=== PATIENT | female | born 1990 | race Caucasian/White ===

== ENCOUNTER 2018-01-03 12:06 | Emergency (ER) | payer MEDICAID ==
[2018-01-03 12:14] VITALS: BP 127/80
[2018-01-03] MEDS ORDERED: HYDROCODONE/ACETAMINOPHEN 5-325 MG TABLET PO ONE (13:16)
[2018-01-03] MEDS ORDERED: ONDANSETRON 4 MG TAB.RAPDIS PO ONE (13:17)
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
== END 2018-01-03 14:41 | disposition left against medical advice (07) ==
LOC: ER 12:06
DX: M54.2 Cervicalgia (principal); M54.9 Dorsalgia, unspecified; R00.0 Tachycardia, unspecified; M25.552 Pain in left hip; M25.551 Pain in right hip; F17.200 Nicotine dependence, unspecified, uncomplicated; V86.99XA Unspecified occupant of other special all-terrain or other off-road motor vehicle injured in nontraffic accident, initial encounter
CPT/HCPCS: 99281

== ENCOUNTER 2018-08-19 17:09 | Emergency (ER) | payer SELFPAY ==
[2018-08-19] MEDS ORDERED: HYDROCODONE/ACETAMINOPHEN 5-325 MG TABLET PO ONE (17:45)
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
--- NOTE | 2018-08-19 18:31 | RADIOLOGY REPORT (SQ) ---
EXAM DESCRIPTION: HAND RIGHT 3 VIEWS COMPLETED DATE/TIME: 08/19/2018 6:21 pm REASON FOR STUDY: crush injury of fingers 2 through 5 COMPARISON: None. EXAM PARAMETERS: NUMBER OF VIEWS: Three views. TECHNIQUE: AP, lateral and oblique radiographic images acquired of the right hand. LIMITATIONS: None. FINDINGS: MINERALIZATION: Normal. BONES: No acute fracture or dislocation. No worrisome bone lesions. JOINTS: No effusions. SOFT TISSUES: No soft tissue swelling. No foreign body. OTHER: No other significant finding. IMPRESSION: NEGATIVE STUDY OF THE RIGHT HAND. NO RADIOGRAPHIC EVIDENCE OF ACUTE INJURY. TECHNICAL DOCUMENTATION: JOB ID: [id number] [employer]- All Rights Reserved Reading location - IP/workstation name: [email or web address]
[2018-08-19 18:58] VITALS: BP 115/72
== END 2018-08-19 19:00 | disposition home or self-care (01) ==
LOC: ER 17:09
DX: S67.190A Crushing injury of right index finger, initial encounter (principal); S60.021A Contusion of right index finger without damage to nail, initial encounter; S67.196A Crushing injury of right little finger, initial encounter; S67.192A Crushing injury of right middle finger, initial encounter; S67.194A Crushing injury of right ring finger, initial encounter; W23.0XXA Caught, crushed, jammed, or pinched between moving objects, initial encounter; F17.200 Nicotine dependence, unspecified, uncomplicated
CPT/HCPCS: 99283

== ENCOUNTER 2018-12-23 21:19 | Emergency (ER) | payer SELFPAY ==
--- NOTE | 2018-12-23 23:27 | RADIOLOGY REPORT (SQ) ---
EXAM DESCRIPTION: XR KNEE 3 VIEWS COMPLETED DATE/TME: 12/23/2018 22:41 CLINICAL HISTORY: 28 years, Female, pain in knee, leg swelling COMPARISON: None. NUMBER OF VIEWS: Three TECHNIQUE: Three views RIGHT knee were obtained in AP, lateral and patellar projections LIMITATIONS: None. FINDINGS: Minimal degenerative changes noted with sharpening of the tibial spines and tiny tricompartmental osteophytes. Moderate nonspecific suprapatellar joint effusion. There is no fracture or dislocation. The joint spaces are preserved. No soft tissue abnormalities are seen. IMPRESSION: Moderate nonspecific suprapatellar joint effusion. copyright 2010 [employer]- All Rights Reserved
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
[2018-12-23] MEDS ORDERED: ENOXAPARIN SODIUM INJ 60 MG/0.6 ML DISP.SYRIN SUBCUT SCH (23:45)
[2018-12-24 00:23] VITALS: BP 114/81
--- NOTE | 2018-12-24 23:42 | EKG REPORT ---
SEVERITY:- BORDERLINE ECG - SINUS RHYTHM BORDERLINE PROLONGED QT INTERVAL : Confirmed by: Kindra Hinojosa 24-Dec-2018 23:41:58
== END 2018-12-24 00:34 | disposition home or self-care (01) ==
LOC: ER 21:19
DX: T40.601A Poisoning by unspecified narcotics, accidental (unintentional), initial encounter (principal); Y92.810 Car as the place of occurrence of the external cause; T76.21XA Adult sexual abuse, suspected, initial encounter; R10.2 Pelvic and perineal pain; M25.561 Pain in right knee; M25.461 Effusion, right knee; R60.0 Localized edema; F17.200 Nicotine dependence, unspecified, uncomplicated
CPT/HCPCS: 93005; 99284; 96372; 73562; 93010; J1650

== ENCOUNTER 2018-12-24 09:12 | Emergency (ER) | payer SELFPAY ==
--- NOTE | 2018-12-24 09:33 | ER Document Report ---
ED Medical Screen (RME) - General Chief Complaint: Leg Pain Stated Complaint: LEG PAIN Time Seen by Provider: 12/24/18 09:28 Mode of Arrival: Ambulatory Information source: Patient Notes: Patient is a 28-year-old female who was seen in this emergency department last night by Dr. Velazquez for multiple complaints. Patient was told to return to the emergency department this morning for a venous Doppler ultrasound of her right leg. Dr. Voss gave her a dose of Lovenox last night as he had a high level of suspicion for a DVT. Patient does not have any known risk factors for DVT. Patient has tenderness to palpation over the right popliteal fossa. She does have 2+ dorsalis pedis pulse and anterior tibial pulse. I have greeted and performed a rapid initial assessment of this patient. A comprehensive ED assessment and evaluation of the patient, analysis of test results and completion of the medical decision making process will be conducted by additional ED providers. Dictation of this chart was performed using voice recognition software; therefore, there may be some unintended grammatical errors. TRAVEL OUTSIDE OF THE [place] IN LAST 30 DAYS: No - Related Data Allergies/Adverse Reactions: No Known Allergies Allergy (Verified 12/23/18 22:41) Past Medical History - Past Medical History Cardiac Medical History: Denies: Hx Congestive Heart Failure, Hx Heart Attack, Hx Hypertension Pulmonary Medical History: Denies: Hx Asthma, Hx Bronchitis, Hx COPD, Hx Pneumonia, Hx Tuberculosis Neurological Medical History: Denies: Hx Seizures Renal/ Medical History: Denies: Hx End Stage Renal Disease, Hx Kidney Stones, Hx Peritoneal Dialysis GI Medical History: Denies: Hx Cirrhosis, Hx Gastroesophageal Reflux Disease, Hx Ulcer Musculoskeltal Medical History: Denies Hx Arthritis, Denies Hx Multiple Sclerosis Psychiatric Medical History: Denies: Hx Bipolar Disorder, Hx Depression, Hx Schizophrenia Past Surgical History: Denies: Hx Pacemaker - Immunizations Hx Diphtheria, Pertussis, Tetanus Vaccination: Yes Physical Exam - Vital signs Vitals: Temp Pulse Resp BP Pulse Ox 98.4 F 88 16 116/71 100 12/24/18 09:15 12/24/18 09:15 12/24/18 09:15 12/24/18 09:15 12/24/18 09:15 Course - Vital Signs Vital signs: Temp Pulse Resp BP Pulse Ox 98.4 F 88 16 116/71 100 12/24/18 09:15 12/24/18 09:15 12/24/18 09:15 12/24/18 09:15 12/24/18 09:15
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
[2018-12-24 12:19] VITALS: BP 105/68
--- NOTE | 2018-12-24 14:33 | XCELERA REPORT ---
[address] [place] [facility] [place] [address] Lower Extremity Venous Evaluation Procedure: Color flow and duplex imaging of the veins of the right lower extremity as well as the left Common Femoral vein. Right Sided Venous Evaluation Normal vessel filling wall to wall, compression and augmentation as well as Colour flow down to the infrageniculate veins. Left Sided Venous Evaluation The left common femoral vein is fully compressible. Spontaneous and phasic flow is present in the left common femoral vein. Interpretation Summary No duplex evidence of DVT or obstruction in the right lower extremity nor in the left Common Femoral vein. Name: PRISCILLA WEST Age: 28 yrs Gender: Female : 1990 Patient Status: Emergency Patient Location: ER Study Date: 12/24/2018 10:58 AM Reason For Study: right lower extremity pain/swelling Ordering Physician: AHMET TINEO Performed By: Samy Aly : AHMET TINEO > Rainer Poole
== END 2018-12-24 12:20 | disposition home or self-care (01) ==
LOC: ER 09:12
DX: M25.461 Effusion, right knee (principal); M25.561 Pain in right knee; F17.200 Nicotine dependence, unspecified, uncomplicated; F12.10 Cannabis abuse, uncomplicated; F11.10 Opioid abuse, uncomplicated
CPT/HCPCS: 99283; 93971 ×2; L1830

== ENCOUNTER 2019-05-18 18:31 | Emergency (ER) | payer MEDICAID ==
[2019-05-18 18:51] VITALS: BP 114/76
[2019-05-18] MEDS ORDERED: ACETAMINOPHEN 325 MG TABLET PO ONE (20:20)
--- NOTE | 2019-05-18 20:22 | ER Document Report ---
ED Medical Screen (RME) - General Chief Complaint: Abscess Stated Complaint: POSSIBLE SPIDER BITE Time Seen by Provider: 05/18/19 20:16 Mode of Arrival: Ambulatory Information source: Patient Notes: 29-year-old female presented to ED for complaint of 2 abscesses to her left thigh. She states 2 to 3 days ago they were just little small pimples and she pinched them and now they are large with a large red area surrounding the area with severe pain. She is alert oriented respirations regular and unlabored speaking in full sentences. She states she does smoke 1/2 pack a day she is a secretary to the vice president and lives with her significant other. She states she does not know if she is or not I have greeted and performed a rapid initial assessment of this patient. A comprehensive ED assessment and evaluation of the patient, analysis of test results and completion of medical decision making process will be conducted by an additional ED providers. TRAVEL OUTSIDE OF THE [place] IN LAST 30 DAYS: No - Related Data Allergies/Adverse Reactions: No Known Allergies Allergy (Verified 05/18/19 18:34) Past Medical History - Past Medical History Cardiac Medical History: Denies: Hx Congestive Heart Failure, Hx Heart Attack, Hx Hypertension Pulmonary Medical History: Denies: Hx Asthma, Hx Bronchitis, Hx COPD, Hx Pneumonia, Hx Tuberculosis Neurological Medical History: Denies: Hx Seizures Renal/ Medical History: Denies: Hx End Stage Renal Disease, Hx Kidney Stones, Hx Peritoneal Dialysis GI Medical History: Denies: Hx Cirrhosis, Hx Gastroesophageal Reflux Disease, Hx Ulcer Musculoskeltal Medical History: Denies Hx Arthritis, Denies Hx Multiple Sclerosis Psychiatric Medical History: Denies: Hx Bipolar Disorder, Hx Depression, Hx Schizophrenia Past Surgical History: Denies: Hx Pacemaker - Immunizations Hx Diphtheria, Pertussis, Tetanus Vaccination: Yes Physical Exam - Vital signs Vitals: Temp Pulse Resp BP Pulse Ox 98.4 F 94 18 114/76 99 05/18/19 18:49 05/18/19 18:49 05/18/19 18:49 05/18/19 18:49 05/18/19 18:49 Course - Vital Signs Vital signs: Temp Pulse Resp BP Pulse Ox 98.4 F 94 18 114/76 99 05/18/19 18:49 05/18/19 18:49 05/18/19 18:49 05/18/19 18:49 05/18/19 18:49
[2019-05-18 20:53] LABS: ABSOLUTE BASOPHILS # (AUTO) 0.1 10^3/uL (0.0-0.2); ABSOLUTE EOSINOPHILS # (AUTO) 0.3 10^3/uL (0.0-0.6); ABSOLUTE MONOCYTES (AUTO) 0.6 10^3/uL (0.1-1.4); ABSOLUTE NEUT (AUTO) 4.4 10^3/uL (1.7-8.2); BASOPHILS % (AUTO) 0.7 % (0-2); EOSINOPHILS % (AUTO) 3.6 % (0-6); HEMATOCRIT 38.2 % (36.0-47.0); HEMOGLOBIN 12.7 g/dL (12.0-15.5); LYMPHOCYTES % (AUTO) 35.8 % (13-45); MEAN CORPUSCULAR HEMOGLOBIN 29.4 pg (27.0-33.4); MEAN CORPUSCULAR HGB CONC 33.2 g/dL (32.0-36.0); MEAN CORPUSCULAR VOLUME 89 fl (80-97); MONOCYTES % (AUTO) 6.6 % (3-13); PLATELET COUNT 307 10^3/uL (150-450); RED BLOOD COUNT 4.31 10^6/uL (3.72-5.28); RED CELL DISTRIBUTION WIDTH 13.8 % (11.5-14.0); SEGMENTED NEUTROPHILS % (AUTO) 53.3 % (42-78); TOTAL CELLS COUNTED % (AUTO) 100 %; WHITE BLOOD COUNT 8.3 10^3/uL (4.0-10.5)
== END 2019-05-18 22:05 | disposition left against medical advice (07) ==
LOC: ER 18:31
DX: L02.416 Cutaneous abscess of left lower limb (principal)
CPT/HCPCS: 99281; 36415; 84703; 85025; J3490

== ENCOUNTER 2019-07-26 19:22 | Emergency (ER) | payer MEDICAID ==
[2019-07-26 19:48] VITALS: BP 120/76
== END 2019-07-27 02:55 | disposition left against medical advice (07) ==
LOC: ER 19:22
DX: Z53.21 Procedure and treatment not carried out due to patient leaving prior to being seen by health care provider (principal)

== ENCOUNTER 2019-07-27 03:28 | Emergency (ER) | payer SELFPAY ==
[2019-07-27] MEDS ORDERED: CLINDAMYCIN HCL 150 MG CAPSULE PO ONE (08:43)
[2019-07-27] MEDS ORDERED: LIDOCAINE 1% INJ-PF (10 MG/ML) 30 ML SDV INJ ONE (08:45)
--- NOTE | 2019-07-27 08:48 | ER Document Report ---
ED General - General Chief Complaint: Abscess Stated Complaint: POSSIBLE ABCESS IN ARM Time Seen by Provider: 07/27/19 08:23 Notes: Patient is a 30-year-old female who presents the emergency department with a chief complaint of redness and pain to her right antecubital area. Patient is an IV drug abuser. She denies any fever, body aches, chills, or any other symptoms. Patient uses meth and the last time she shot up in her right AC area was 5 days ago. TRAVEL OUTSIDE OF THE [place] IN LAST 30 DAYS: No - Related Data Allergies/Adverse Reactions: No Known Allergies Allergy (Verified 05/18/19 18:34) Past Medical History - Social History Smoking Status: Current Every Day Smoker Frequency of alcohol use: None Drug Abuse: Methamphetamine Family History: Reviewed & Not Pertinent Patient has suicidal ideation: No Patient has homicidal ideation: No - Past Medical History Cardiac Medical History: Denies: Hx Congestive Heart Failure, Hx Heart Attack, Hx Hypertension Pulmonary Medical History: Denies: Hx Asthma, Hx Bronchitis, Hx COPD, Hx Pneumonia, Hx Tuberculosis Neurological Medical History: Denies: Hx Seizures, Hx Parkinson's Disease Renal/ Medical History: Denies: Hx End Stage Renal Disease, Hx Kidney Stones, Hx Peritoneal Dialysis GI Medical History: Denies: Hx Cirrhosis, Hx Gastroesophageal Reflux Disease, Hx Ulcer Musculoskeletal Medical History: Denies Hx Arthritis, Denies Hx Multiple Scleros is Psychiatric Medical History: Denies: Hx Bipolar Disorder, Hx Depression, Hx Schizophrenia Past Surgical History: Denies: Hx Pacemaker - Immunizations Hx Diphtheria, Pertussis, Tetanus Vaccination: Yes Review of Systems - Review of Systems Notes: REVIEW OF SYSTEMS: CONSTITUTIONAL : Denies recent illness. Denies recent unintentional weight loss. Denies fever, chills, or sweats. EENT: Denies eye, ear, throat, or mouth pain, discharge, or symptoms. Denies nasal or sinus congestion. CARDIOVASCULAR: Denies chest pain. RESPIRATORY: Denies shortness of breath, cough, congestion, difficulty breathing, or wheezing. GASTROINTESTINAL: Denies nausea, vomiting, and diarrhea. Denies abdominal pain. Denies constipation. GENITOURINARY: Denies difficulty urinating, burning, blood in urine, urgency or frequency. MUSCULOSKELETAL: Denies neck and back pain. Denies joint pain or swelling. SKIN: See HPI. HEMATOLOGIC : Denies easy bruising or bleeding. LYMPHATIC: Denies swollen, painful, enlarged glands. NEUROLOGICAL: Denies no numbness or tingling denies weakness. Denies headache. Denies altered mental status. Denies alteration in speech. PSYCHIATRIC: Denies stress, anxiety, alteration in sleep patterns, or depression. All other systems reviewed and negative. Physical Exam - Vital signs Vitals: Temp Pulse Resp BP Pulse Ox 97.7 F 85 20 126/62 H 100 07/27/19 05:15 07/27/19 05:15 07/27/19 05:15 07/27/19 05:15 07/27/19 05:15 - Notes Notes: PHYSICAL EXAMINATION: GENERAL: Appears well, healthy, well-nourished, no acute distress. HEAD: Normocephalic, atraumatic. EYES: PERRL, conjunctiva normal, all extraocular movements intact, sclera nonicteric ENT: Moist mucous membranes. NECK: Supple, no noticeable swelling, redness, rash. Normal range of motion. LUNGS: Equal breath sounds bilaterally and clear to auscultation. No wheezes rales or rhonchi. CARDIOVASCULAR: S1-S2, regular rate, regular rhythm. Radial pulses 2+, normal. ABDOMEN: Normoactive bowel sounds. Soft, nontender, no guarding, no rebound tenderness, and no masses palpated. EXTREMITIES: Normal strength and range of motion, no pitting or edema. No cyanosis. NEUROLOGICAL: Moves all extremities upon command. Strength 5/5 in all extremities. PSYCH: Normal mood, normal affect. SKIN: Warm, dry. Erythematous area to right AC. IV drug use track larry noted. Course - Re-evaluation Re-evalutation: 07/27/19 09:48 Dr. Doe evaluated the patient and is in agreement that it is okay to I&D the patient AC area. Differential diagnosis includes but normal limited to: abscess, dermoid cyst, sebaceous cyst, furnucle, or others. Based on patient's physical exam and history, this is an abscess. It was drained in the ER. There is surrounding cellulitis. I do not believe the patient has underlying necrotizing fasciitis. Patient has risk factors for MRSA. Based on patient's physical exam and these factors, they will be treated with antibiotics. Follow-up precautions were given. Verbal discharge instructions were given to the patient. They verbalized understanding. They are stable for discharge. - Vital Signs Vital signs: Temp Pulse Resp BP Pulse Ox 97.4 F 82 16 109/65 100 07/27/19 10:14 07/27/19 10:14 07/27/19 10:14 07/27/19 10:14 07/27/19 10:14 Procedures - Incision and Drainage Right AC fossa Type: Simple, Complex Anesthetic type: 1% Lidocaine, 1% Lidocaine w/epi mL's of anesthetic: 15 Blade size: 11 I&D procedure: Betadine prep applied, Shurclens applied Incision Method: Incision made by scalpel Amount/type of drainage: 10 mls/purulent/blood Discharge - Discharge Clinical Impression: Abscess, IV drug abuse Cellulitis Qualifiers: Site of cellulitis: extremity Site of cellulitis of extremity: upper extremity Laterality: right Qualified Code(s): L03.113 - Cellulitis of right upper limb Condition: Stable Disposition: HOME, SELF-CARE Instructions: Abscess ([facility]), Cephalexin ([facility]), Post Incision and Drainage, Trimethoprim-Sulfa ([facility]) Additional Instructions: You were seen for an abscess that required drainage. Please clean this area with soap and water twice daily and apply a topical antibiotic. Dress the area after each cleaning. Please return if you develop fever, vomiting, the pain at the si te worsens, you notice spreading redness from the area, or you have any other symptoms that are concerning to you. The rash is likely due to infection of your skin. You need to take the antibiotics as prescribed. Do not stop even if the rash goes away until you have completed all the antibiotics. If you see spreading of your redness, please return to the emergency department. You should also return if you develop fevers with temperature greater than 101, persistent vomiting, worsening pain, or have any other symptoms that are concerning to you. Take ibuprofen 600 mg every 6 hours for your pain. Follow-up with your primary care provider in 42 hours. Stop using IV drugs, as this is the cause of your abscess. If you continue, you can get an infection in your heart or in your spine, or in any other place of your body. Prescriptions: Sulfamethoxazole/Trimethoprim [Bactrim Ds Tablet] 1 each PO BID 7 Days #14 tablet Cephalexin Monohydrate [Keflex 500 mg Capsule] 500 mg PO Q6H 7 Days #28 capsule Forms: Return to Work
[2019-07-27] MEDS ORDERED: LIDOCAINE 1%/EPINEPHRINE INJ 20 ML VIAL ONE (09:39)
[2019-07-27] MEDS ORDERED: IBUPROFEN 600 MG TABLET PO ONE (09:57)
[2019-07-27] MEDS ORDERED: CEPHALEXIN 500 MG CAPSULE PO ONE (09:57)
[2019-07-27 10:17] VITALS: BP 109/65
== END 2019-07-27 10:14 | disposition home or self-care (01) ==
LOC: ER 03:28
DX: L02.91 Cutaneous abscess, unspecified (principal); L03.113 Cellulitis of right upper limb; F15.10 Other stimulant abuse, uncomplicated; F17.200 Nicotine dependence, unspecified, uncomplicated
CPT/HCPCS: 99283; 10060; A6266; J3490